=== PATIENT | male | born 1960 | race Caucasian/White ===

== ENCOUNTER → 2017-04-28 | Outpatient (CLI) | payer BC ==
[~2017-04-28] VITALS: Ht 167.6 cm; Wt 86.4 kg
[~2017-04-28] MED LIST: ASPIRIN81 M2 PO; CYMBALTA30 MG PO; HYDROCHLOROTHIA25 MG PO; NEXIUM40 MG PO; ZOCOR20 MG PO
== END | disposition home or self-care (01) ==
LOC: AMB 04-14 09:45
DX: K22.9 Disease of esophagus, unspecified (principal); R13.10 Dysphagia, unspecified; I10 Essential (primary) hypertension; K21.9 Gastro-esophageal reflux disease without esophagitis; D47.2 Monoclonal gammopathy; G62.9 Polyneuropathy, unspecified; Z85.72 Personal history of non-Hodgkin lymphomas; Z79.82 Long term (current) use of aspirin
CPT/HCPCS: 93005; C1726; J0330; J1100; J2405; J3010